=== PATIENT | female | born 1985 | race Caucasian/White ===

== ENCOUNTER 2017-01-12 17:40 | Emergency (ER) | payer BC ==
[2017-01-12 17:45] VITALS: BP 127/79; PULSE 81; TEMP 98.7; BMI 23.0
[2017-01-12] MEDS ORDERED: ACETAMINOPHEN 500 MG TABLET (FP) PO ONE (17:53)
--- NOTE | 2017-01-12 18:21 | PDOC ---
History of Present Illness - General Chief Complaint: Pain Stated Complaint: ABDOMINAL PAIN Time Seen by Provider: 01/12/17 17:52 History Source: Patient Exam Limitations: No Limitations - History of Present Illness Travel History: No Initial Comments: 01/12/17 18:21 31-year-old female approximately 5-6 weeks based on LMP presents with lower abdominal cramping since yesterday that she she states is intermittent and mild. Patient has no fever, urinary complaints, bowel complaints, vaginal discharge, vaginal bleeding, low back pain, abdominal distention. Timing/Duration: reports: intermittent Quality: reports: mild, cramping Abdominal Pain Onset Location: reports: suprapubic Pain Radiation: reports: no radiation Activities at Onset: reports: none Aggravating Factors: improves with: None Alleviating Factors: improves with: None Past History - Past Medical History Allergies/Adverse Reactions: Allergies Allergy/AdvReac Type Severity Reaction Status Date / Time No Known Allergies Allergy Verified 01/12/17 17:43 Home Medications: Ambulatory Orders Nitrofurantoin Monohyd/M-Cryst [Macrobid -] 100 mg PO BID #14 capsule 01/12/17 - Psycho/Social/Smoking Cessation Hx Anxiety: No Suicidal Ideation: No Smoking History: Never smoked Have you smoked in the past 12 months: No Information on smoking cessation initiated: No Hx Alcohol Use: No Drug/Substance Use Hx: No Substance Use Type: None Patient Lives Alone: No Lives with/in: spouse/SO Review of Systems - Review of Systems Able to Perform ROS?: Yes Constitutional: No: Symptoms Reported HEENTM: No: Symptoms Reported Respiratory: No: Symptoms reported Cardiac (ROS): No: Symptoms Reported ABD/GI: Yes: Abdominal cramping : No: Symptoms Reported Musculoskeletal: No: Symptoms Reported Integumentary: No: Rash Neurological: No: Headache Hematologic/Lymphatic: No: Symptoms Reported *Physical Exam - Vital Signs Last Vital Signs Temp Pulse Resp BP Pulse Ox 98.7 F 81 18 127/79 100 01/12/17 17:43 01/12/17 17:43 01/12/17 17:43 01/12/17 17:43 01/12/17 17:43 - Physical Exam General Appearance: Yes: Nourished, Appropriately Dressed. No: Apparent Distress HEENT: positive: EOMI, JOSE. negative: Pale Conjunctivae Neck: positive: Supple Respiratory/Chest: positive: Lungs Clear, Normal Breath Sounds. negative: Respiratory Distress, Accessory Muscle Use Cardiovascular: positive: Regular Rhythm, Regular Rate. negative: Murmur Female Pelvic Exam: positive: cervical os closed. negative: CMT, discharge, adnexal tenderness, vaginal bleeding Gastrointestinal/Abdominal: positive: Soft, Tenderness (mild mid suprapubic) Extremity: positive: Normal Capillary Refill. negative: Pedal Edema Integumentary: positive: Normal Color, Warm, Moist Neurologic: positive: Motor Strength 5/5 (ambulatory) ED Treatment Course - RADIOLOGY Radiology Studies Ordered: Category Date Time Status TRANSVAGINAL US PREG [US] Stat Ultrasound 01/12/17 17:54 Ordered Medical Decision Making - Medical Decision Making 01/12/17 18:24 Patient here for evaluation of lower abdominal cramping since yesterday. Patient has no other complaints and was examined that she was . Patient ordered for labs, urine and ultrasound. *DC/Admit/Observation/Transfer Diagnosis at time of Disposition: , UTI (urinary tract infection) - Discharge Dispostion Disposition: HOME - Prescriptions Prescriptions: Nitrofurantoin Monohyd/M-Cryst [Macrobid -] 100 mg PO BID #14 capsule - Referrals Referrals: Pietro Chang MD [Staff Physician] - Nataliia Poe MD [Staff Physician] - - Patient Instructions Printed Discharge Instructions: Common Discomforts and Bodily Changes During Additional Instructions: drink plenty of fluids. follow up with your import coordinator in 1-2 days. take macrobid as prescribed. return to the ER if severe abdominal pain, fever, vaginal bleeding > 2 pads/ hour.
[2017-01-12 18:49] LABS: URINE APPEARANCE SLCLOUDY; URINE BILIRUBIN NEGATIVE (NEGATIVE); URINE COLOR LTYELLOW; URINE GLUCOSE (UA) NEGATIVE (NEGATIVE); URINE KETONE TRACE (NEGATIVE); URINE NITRITE NEGATIVE (NEGATIVE); URINE PROTEIN NEGATIVE (NEGATIVE); URINE UROBILINOGEN NEGATIVE E.U./dl (0.2-1.0)
[2017-01-12 19:13] LABS: URINE BLOOD 2+ (NEGATIVE); URINE LEUK ESTERASE 3+ (NEGATIVE)
--- NOTE | 2017-01-12 19:24 | PDOC ---
*Physical Exam - Vital Signs Last Vital Signs Temp Pulse Resp BP Pulse Ox 98.7 F 81 18 127/79 100 01/12/17 17:43 01/12/17 17:43 01/12/17 17:43 01/12/17 17:43 01/12/17 17:43 - Physical Exam General Appearance: Yes: Appropriately Dressed Gastrointestinal/Abdominal: positive: Normal Bowel Sounds, Soft, Other ( suprapubic tenderness) ED Treatment Course - ADDITIONAL ORDERS Additional order review: Laboratory Results 01/12/17 01/12/17 18:23 18:23 Beta HCG, Quant 646.1 Urine Color Ltyellow Urine Appearance Slcloudy Urine pH 5.0 Urine Protein Negative Urine Glucose (UA) Negative Urine Ketones Trace H Urine Blood 2+ H Urine Nitrite Negative Urine Bilirubin Negative Urine Urobilinogen Negative Ur Leukocyte Esterase 3+ H *DC/Admit/Observation/Transfer Diagnosis at time of Disposition: Qualifiers: Weeks of gestation: less than 8 weeks Qualified Code(s): Z3A.01 - Less than 8 weeks gestation of UTI (urinary tract infection) Qualifiers: Urinary tract infection type: acute cystitis Hematuria presence: without hematuria Qualified Code(s): N30.00 - Acute cystitis without hematuria - Discharge Dispostion Disposition: HOME - Prescriptions Prescriptions: Nitrofurantoin Monohyd/M-Cryst [Macrobid -] 100 mg PO BID #14 capsule - Referrals Referrals: Pietro Chang MD [Staff Physician] - Nataliia Poe MD [Staff Physician] - - Patient Instructions Printed Discharge Instructions: Common Discomforts and Bodily Changes During Additional Instructions: drink plenty of fluids. follow up with your busher helper in 1-2 days. take macrobid as prescribed. return to the ER if severe abdominal pain, fever, vaginal bleeding > 2 pads/ hour.
[2017-01-12] MEDS ORDERED: ACETAMINOPHEN 325 MG TABLET (FP) ONE (20:02)
[2017-01-12] MEDS ORDERED: NITROFURANTOIN MACROCRYSTAL 50 MG CAPSULE (FP) ONE (21:14)
[2017-01-12] MEDS ORDERED: NITROFURANTOIN MACROCRYSTAL 50 MG CAPSULE (FP) PO SCH (21:15)
[2017-01-13 15:26] LABS: URINE BACTERIA RARE /hpf (NEGATIVE); URINE MUCUS RARE; URINE RBC 5 /hpf (0-3); URINE WBC 11 (3-5)
== END 2017-01-12 21:23 | disposition home or self-care (01) ==
LOC: JER 17:40
DX: O23.11 Infections of bladder in pregnancy, first trimester (principal); Z3A.01 Less than 8 weeks gestation of pregnancy
CPT/HCPCS: 36415; 76817-TC; 81003; 81015; 84702; 87086; 99282-25